=== PATIENT | female | born 1980 | race Caucasian/White ===

== ENCOUNTER 2025-01-03 07:29 | Outpatient (AMB) | payer OTHER, SELFPAY ==
--- NOTE | 2025-01-03 07:36 | A.OFFPC_ITS ---
Vital Signs 01/03/25 07:38 Height 5 ft 10.28 in Weight 148 lb BMI 21.1 BP 126/80 Blood Pressure Location Lt brachial Position Sitting Intake Visit Reasons: establish care Project Manager/Team Coach Required: No Accompanied by: Self / Same As Patient Allergies No Known Allergies Allergy (Verified 01/03/25 07:49) Medication List - Last Reconciled 01/03/25 by Martita Gupta MD No Known Home Meds Tobacco use date assessed: 01/03/25 Dental Screening Dental Screen Date: 01/03/25 Did you have a dental visit in the last 12 months?: Yes Did you have a dental problem in the last 6 months where you did not have access to dental care?: No Was dental information given to patient?: Patient has dentist HPI HPI Comments History of Present Illness Details The patient is a 44-year-old female presenting to [facility] and request referrals for dermatology. She has been diagnosed with uterine fibroids, identified via ultrasound, and is under consideration for an MRI to formulate a treatment plan. She has experienced iron deficiency anemia due to menorrhagia. Despite being prescribed medication to reduce menstrual blood loss, she has not started the regimen, which is intended for use during menstruation. Her mammogram in 2022 is due for follow-up on January 30, secondary to dense breast tissue, requiring additional imaging. The patient requests improvement rn referral to address a chronic lip lesion of at least a decade's duration, previously examined without successful treatment, and causing infrequent prur itus. Her family history includes a paternal incidence of stomach cancer. Notably, she does not use tobacco or alcohol and has not undergone any surgical procedures. [facility] Surgical History No pertinent past surgical history Family History Mother No problems noted. Father Stomach cancer Social History Housing: House Alcohol intake: never Patient Tobacco Use Status: Never used Tobacco e-Cigarette/Vaping Use: Never Used Second Hand Smoke Exposure: No service: No Current occupational status: employed Current occupational exposures/hazards: No Cognitive needs: No Hearing needs: No Vision needs: No Questionnaire PHQ-9 Over the last 2 weeks, how often have you been bothered by any of the following problems? 1. Little interest or pleasure in doing things: not at all 2. Feeling down, depressed, or hopeless: not at all 3. Trouble falling or staying asleep, or sleeping too much: not at all 4. Feeling tired or having little energy: not at all 5. Poor appetite or overeating: not at all 6. Feeling bad about yourself - or that you are a failure or have let yourself or your family down: not at all 7. Trouble concentrating on things, such as reading the newspaper or watching television: not at all 8. Moving or speaking so slowly that other people could have noticed. Or the opposite - being so fidgety or restless that you have been moving around a lot more than usual: not at all 9. Thoughts that you would be better off or of hurting yourself in some way: not at all Total score: 0 Depression Screening Interpretation: Negative Depression Screening Done: Yes 45693 - PHQ-9 Billing: Yes Source: Developed by Drs. Laci Lunsford, Elsa Vernon, Juancarlos Reilly and colleagues, with an educational anais from [employer]. Thrive Questionnaire Date Thrive assessed: 01/03/25 I am a: Patient What is your living situation today?: I have a steady place to live Within the past 12 months, did the food you bought not last and you didn't have the money to get more?: Never true Within the past 12 months, did you worry whether your food would run out before you got money to buy more?: Never true Do you have trouble paying for medicines?: No Do you have trouble getting transportation to medical appointments?: No Do you have trouble paying your heating and electricity bill?: No Do you have trouble taking care of your child, family member or friend?: No Do you have trouble with day-to-day activities such as bathing, preparing meals, shopping, managing finances, etc.?: No Are you currently unemployed and looking for a job?: No Are you interested in more education?: No Please select the resources that you would like help with: None Currently or been in a relationship where the following occur: No concerns reported THRIVE Score: 0 AUDIT C Alcohol Use Questionnaire (AUDIT-C) 1. How often do you have a drink containing alcohol?: Never Total Score: 0 Score Reviewed/Action Taken: No RONNA-7 AMB Questionnaire RONNA-7 Date RONNA - 7 assessed: 01/03/25 Feeling nervous, anxious, or on edge: 0 = Not at all Not being able to stop or control worryin = Not at all Worrying too much about different things: 0 = Not at all Trouble relaxin = Not at all Being so restless that it is hard to sit still: 0 = Not at all Becoming easily annoyed or irritable: 0 = Not at all Feeling afraid as if something awful might happen: 0 = Not at all Total RONNA-7 score (0-4 normal; 5-9 mild; 10-14 moderate; 15-21 severe): 0 Source: Developed by Drs. Laci Lunsford, Elsa Vernon, Juancarlos Reilly and colleagues, with an educational anais from [employer]. RONNA-7 Assessment Billing RONNA-7 Assessment Tool: RONNA-7 Assessment 33833 Review of Systems Const All systems reviewed & are unremarkable except as noted in HPI and below Card Denies chest pain at rest, Denies chest pain with activity, Denies edema, Denies irregular heart rhythm, Denies claudication, Denies dyspnea, Denies dyspnea on exertion, Denies orthopnea, Denies paroxysmal nocturnal dyspnea and Denies slow heart rate Resp Denies cough, Denies dyspnea and Denies dyspnea on exertion GI Denies abdominal pain, Denies change in bowel habits, Denies excessive flatus, Denies nausea and Denies vomiting Denies urinary incontinence, Denies urinary hesitancy and Denies urinary urgency Skin/Breast Reports lesions Physical exam (Primary Care) Vital Signs: Last Vital Signs BP 126/80 01/03/25 07:38 BMI result Body Mass Index 21.1 Tobacco/Smoking Status: Tobacco use Status Tobacco use date assessed 01/03/25 01/03/25 07:42 Patient Tobacco Use Status Never used Tobacco 01/03/25 07:42 e-Cigarette/Vaping Use Never Used 01/03/25 07:42 PHQ-9: PHQ-9 Score PHQ-9: Total score 0 01/03/25 07:51 Depression Screening Interpretation: Negative Thrive Assessment: Date of Thrive Assessment Date Thrive assessed 01/03/25 01/03/25 07:42 Currently or been in a relationship where the following occur: No concerns reported Resp Effort & Inspection: normal respiratory effort Auscultation: clear to auscultation bilaterally Cardio Jugular venous distension: no JVD Rate: regular rate Rhythm: regular rhythm Heart sounds: S1 normal heart sound present and S2 normal heart sound present Skin General skin exam: no rashes or lesions noted Lesions: lesion noted (lower lip) Extrem General: Yes full ROM Coding Level of Care Code New Pt Level 3 (56526) Complex EM visit Add On G2211 Diagnoses Skin lesion L98.9 Iron deficiency anemia due to chronic blood loss D50.0 Uterine fibroid D25.9 Additional Codes PHQ-9 - 70585 - PHQ-9 Billing: Yes ([id number]) RONNA-7 Assessment Billing - RONNA-7 Assessment Tool: RONNA-7 Assessment 41101 ([id number]) Time Spent (min) 19 Assessment & Plan Assessment & Plan (1) Skin lesion: Code(s): L98.9 - Disorder of the skin and subcutaneous tissue, unspecified Category: Medical (2) Iron deficiency anemia due to chronic blood loss: Code(s): D50.0 - Iron deficiency anemia secondary to blood loss (chronic) Category: Medical (3) Uterine fibroid: Code(s): D25.9 - Leiomyoma of uterus, unspecified Category: Medical Plan The plan includes proceeding with the MRI to evaluate uterine fibroids, addressing potential surgical treatment. To manage iron deficiency anemia, the patient is encouraged to start the prescribed menstrual medication to reduce bl ood loss. A dermatology referral will be made to evaluate the chronic lip lesion. Continuation with mammographic follow-ups is planned, with a scheduled examination on January 30 due to the presence of dense breast tissue. Orders for these evaluations will be provided to ensure complete management and assessment. We will conduct a thorough physical examination in four months to monitor and address any health maintenance concerns. Patient was informed and verbally consented to the use of an ambient scribe for clinic note documentation during this visit. I discussed with the patient the need for further evaluation of her uterine fibroids with an MRI, as ordered by Dr. Méndez, to assess the need for potential surgical intervention. I explained the importance of initiating the prescribed medication to manage her iron deficiency anemia by reducing menstrual blood loss. I agreed to refer her to dermatology for examination of the chronic lip lesion, considering its prolonged presence and intermittent itching. I also advised her on the necessity of follow-up mammography due to her dense breast tissue, with her next appointment scheduled for January 30. We planned to complete a comprehensive physical examination in four months to evaluate her overall health status and continue preventative care. Patient Instructions: - Schedule and complete MRI for fibroid evaluation. - Start taking the prescribed medication for menorrhagia during your menstrual period. - Attend the dermatology appointment for the lip lesion evaluation. - Attend your mammogram appointment on January 30. - Return for a physical examination in four months.
[2025-01-03 07:38] VITALS: BP 126/80; BMI 21.1
== END 2025-01-03 07:59 | disposition home or self-care (01) ==
LOC: HO.HMCH 07:29
PROVIDERS: PCP Internal Medicine; Visit Provider Internal Medicine
DX: L98.9 Disorder of the skin and subcutaneous tissue, unspecified (principal); D50.0 Iron deficiency anemia secondary to blood loss (chronic); D25.9 Leiomyoma of uterus, unspecified

== ENCOUNTER → 2025-01-03 07:29 | Outpatient (BNVA) | payer OTHER, SELFPAY | PROVIDERS: Visit Provider Internal Medicine | DX: Z76.89 Persons encountering health services in other specified circumstances (principal); L98.9 Disorder of the skin and subcutaneous tissue, unspecified; D50.0 Iron deficiency anemia secondary to blood loss (chronic); D25.9 Leiomyoma of uterus, unspecified | CPT/HCPCS: 96127 ==

== ENCOUNTER 2025-05-13 07:32 | Outpatient (AMB) | payer OTHER, SELFPAY ==
--- NOTE | 2025-05-13 07:41 | A.OFFPC_ITS ---
Vital Signs 05/13/25 07:42 Height 5 ft 10.28 in Weight 149 lb BMI 21.2 BP 112/72 Blood Pressure Location Lt brachial Position Sitting Pulse 87 Pulse Source Pulse Oximeter Pulse Oximetry (%) 99 Oxygen Delivery Method Room Air Intake Visit Reasons: Annual Physical Manager Biostatistics Required: No Accompanied by: Self / Same As Patient Allergies No Known Allergies Allergy (Verified 05/13/25 07:49) Medication List - Last Reconciled 05/13/25 by Martita Gupta MD No Known Home Meds Tobacco use date assessed: 01/03/25 Dental Screening Dental Screen Date: 01/03/25 HPI HPI Comments History of Present Illness Details The patient is a 44-year-old female presenting for a wellness visit and physical examination. She has experienced anemia in the past, which will be re-evaluated. The patient reports tremors, particularly noticeable when nervous, and will be referred to neurology for further evaluation. In terms of preventative care, the patient is scheduled for a colon cancer screening using a stool test (Cologuard) at home. She has no history of smoking or alcohol use and denies any current symptoms such as chest pain or dyspnea. Declines Tdap vaccine today. Mammogram completed this year and was benign. [facility] Surgical History No pertinent past surgical history Family History Mother No problems noted. Father Stomach cancer Social History Housing: House Alcohol intake: never Patient Tobacco Use Status: Never used Tobacco Tobacco use type: Cigarette e-Cigarette/Vaping Use: Never Used Second Hand Smoke Exposure: No service: No Current occupational status: employed Current occupational exposures/hazards: No Cognitive needs: No Hearing needs: No Vision needs: No Questionnaire PHQ-9 Over the last 2 weeks, how often have you been bothered by any of the following problems? 1. Little interest or pleasure in doing things: not at all 2. Feeling down, depressed, or hopeless: not at all 3. Trouble falling or staying asleep, or sleeping too much: not at all 4. Feeling tired or having little energy: not at all 5. Poor appetite or overeating: not at all 6. Feeling bad about yourself - or that you are a failure or have let yourself or your family down: not at all 7. Trouble concentrating on things, such as reading the newspaper or watching television: not at all 8. Moving or speaking so slowly that other people could have noticed. Or the opposite - being so fidgety or restless that you have been moving around a lot more than usual: not at all 9. Thoughts that you would be better off or of hurting yourself in some way: not at all Total score: 0 Depression Screening Interpretation: Negative Depression Screening Done: Yes 60062 - PHQ-9 Billing: Yes Source: Developed by Drs. Laci Lunsford, Elsa Vernon, Juancarlos Reilly and colleagues, with an educational anais from [employer]. Thrive Questionnaire Date Thrive assessed: 01/03/25 I am a: Patient What is your living situation today?: I have a steady place to live Within the past 12 months, did the food you bought not last and you didn't have the money to get more?: Never true Within the past 12 months, did you worry whether your food would run out before you got money to buy more?: Never true Do you have trouble paying for medicines?: No Do you have trouble getting transportation to medical appointments?: No Do you have trouble paying your heating and electricity bill?: No Do you have trouble taking care of your child, family member or friend?: No Do you have trouble with day-to-day activities such as bathing, preparing meals, shopping, managing finances, etc.?: No Are you currently unemployed and looking for a job?: No Are you interested in more education?: No Please select the resources that you would like help with: None Currently or been in a relationship where the following occur: No concerns reported THRIVE Score: 0 AUDIT C Alcohol Use Questionnaire (AUDIT-C) 1. How often do you have a drink containing alcohol?: Never 3. How often do you have six or more drinks on one occasion?: Never Total Score: 0 Score Reviewed/Action Taken: No RONNA-7 AMB Questionnaire RONNA-7 Date RONNA - 7 assessed: 01/03/25 Source: Developed by Drs. Laci L. JonnElsa shipman, Juancarlos Reilly and colleagues, with an educational anais from [employer]. Review of Systems Const All systems reviewed & are unremarkable except as noted in HPI and below Card Denies chest pain at rest, Denies chest pain with activity, Denies edema, Denies irregular heart rhythm, Denies claudication, Denies dyspnea, Denies dyspnea on exertion, Denies orthopnea, Denies paroxysmal nocturnal dyspnea and Denies slow heart rate Resp Denies cough, Denies dyspnea and Denies dyspnea on exertion Denies urinary incontinence, Denies urinary hesitancy and Denies urinary urgency Musc Denies atrophy, Denies deformity and Denies limited range of motion Physical exam (Primary Care) Vital Signs: Last Vital Signs Pulse 87 05/13/25 07:42 BP 112/72 05/13/25 07:42 Pulse Ox 99 05/13/25 07:42 Oxygen Delivery Method Room Air 05/13/25 07:42 BMI result Body Mass Index 21.2 Tobacco/Smoking Status: Tobacco use Status Tobacco use date assessed 01/03/25 05/13/25 07:46 Patient Tobacco Use Status Never used Tobacco 05/13/25 07:46 Tobacco use type Cigarette 05/13/25 07:46 e-Cigarette/Vaping Use Never Used 05/13/25 07:46 PHQ-9: PHQ-9 Score PHQ-9: Total score 0 05/13/25 07:46 Depression Screening Interpretation: Negative Thrive Assessment: Date of Thrive Assessment Date Thrive assessed 01/03/25 05/13/25 07:46 Currently or been in a relationship where the following occur: No concerns reported [facility] Head: Yes normal to inspection, Yes normocephalic and Yes atraumatic Ears: external ears normal Mouth: lip normal Eyes General: appearance normal, both eyes and all related structures Eyelids: Yes eyelids normal Conjunctivae: conjunctivae normal Neck Neck: Yes normal visual inspection and Yes supple Resp Effort & Inspection: normal respiratory effort Auscultation: clear to auscultation bilaterally Cardio Jugular venous distension: no JVD Rate: regular rate Rhythm: regular rhythm Heart sounds: S1 normal heart sound present and S2 normal heart sound present GI Inspection: Yes normal to inspection Palpation (GI): Soft to palpation and nontender Auscultation: normal bowel sounds Skin General skin exam: no rashes or lesions noted Neuro General: no focal motor deficits Extrem General: Yes full ROM Psych Appearance: grossly normal Coding Level of Care Code Est Pt Level 3 (88981) Est Pt Prev Care 40-64y(81432) Diagnoses Physical exam Z00.00 Tremor of both hands R25.1 Iron deficiency anemia due to chronic blood loss D50.0 Additional Codes PHQ-9 - 90291 - PHQ-9 Billing: Yes ([id number]) Time Spent (min) 32 Assessment & Plan Assessment & Plan (1) Physical exam: Code(s): Z00.00 - Encounter for general adult medical examination without abnormal findings Category: Medical (2) Tremor of both hands: Code(s): R25.1 - Tremor, unspecified Category: Medical (3) Iron deficiency anemia due to chronic blood loss: Code(s): D50.0 - Iron deficiency anemia secondary to blood loss (chronic) Category: Medical Plan Plan Patient was informed and verbally consented to the use of an ambient scribe for clinic note documentation during this visit. 1. Encounter for general adult medical examination without abnormal findings Z00.00 The patient is scheduled for a colon cancer screening using a stool test (Cologuard) at home. 2. Tremor, unspecified R25.1 The patient reports tremors, particularly noticeable when nervous, and will be referred to neurology for further evaluation. 3. Iron deficiency anemia secondary to blood loss (chronic) D50.0 Repeat CBC. Hemoglobin goal is over 7 g/dl. Orders: Orders Lipid Panel Today E78.5 - Hyperlipidemia, unspecified Complete Blood Count Auto Diff Today D64.9 - Anemia, unspecified Comprehensive [place]. Panel Fast Today Z00.00 - Encounter for general adult medical examination without abnormal findings IRON PROFILE Today D64.9 - Anemia, unspecified Referrals Neurology Referral R25.1 - Tremor, unspecified
[2025-05-13 07:42] VITALS: BP 112/72; PULSE 87; O2SAT 99; BMI 21.2
== END 2025-05-13 08:01 | disposition home or self-care (01) ==
LOC: HO.HMCH 07:33
PROVIDERS: Visit Provider Internal Medicine
DX: Z00.00 Encounter for general adult medical examination without abnormal findings (principal); R25.1 Tremor, unspecified; D50.0 Iron deficiency anemia secondary to blood loss (chronic)

== ENCOUNTER → 2025-05-13 07:32 | Outpatient (BNVA) | payer OTHER, SELFPAY | PROVIDERS: Visit Provider Internal Medicine | DX: Z00.00 Encounter for general adult medical examination without abnormal findings (principal); R25.1 Tremor, unspecified; D50.0 Iron deficiency anemia secondary to blood loss (chronic); E78.5 Hyperlipidemia, unspecified; D64.9 Anemia, unspecified | CPT/HCPCS: 96127 ==